=== PATIENT | male | born 1995 | race Caucasian/White ===

== ENCOUNTER 2019-05-08 20:56 | Emergency (ER) | payer OTHER ==
[~2019-05-08] VITALS: Ht 172.7 cm; Wt 69.4 kg
[2019-05-08 21:01] VITALS: BP 127/79; Ht 172.7 cm; Wt 69.4 kg
== END 2019-05-08 22:12 | disposition home or self-care (01) ==
LOC: ED 20:56
DX: M54.5 Low back pain (principal); G89.29 Other chronic pain; R10.30 Lower abdominal pain, unspecified
CPT/HCPCS: J1885